=== PATIENT | male | born 1955 | race Caucasian/White ===

== ENCOUNTER 2020-11-04 16:50 | Inpatient (IN) | payer MEDICARE, MEDICAID ==
[~2020-11-04] VITALS: Ht 172.7 cm; Wt 83.5 kg
[2020-11-04] MEDS ORDERED: ONDANSETRON HCL 4MG/2ML INJ IV STA (17:11)
[2020-11-04] MEDS ORDERED: SODIUM CHLORIDE 0.9% 1,000 ML IV ONE (17:15)
[2020-11-04] MEDS: MORPHINE SULFATE 4 MG/ML CPJ (NOT FOR IM USE) IV STA ×2 (17:20→18:48)
[2020-11-04] MEDS ORDERED: KETOROLAC 15MG/ML VIAL IV ONE (17:30)
[2020-11-04 17:45] LABS: BASOPHILS % 0.3 % (0.0-2.0); EOSINOPHILS % 1.7 % (0.0-5.0); HEMOGLOBIN. 14.5 g/dL (14.0-18.0); LYMPHOCYTES % 13.2 % (20.0-50.0); MEAN CORPUSCULAR HEMOGLOBIN 31.1 pg (28.0-32.0); MEAN CORPUSCULAR VOLUME 88.1 fL (80.0-94.0); MEAN PLATELET VOLUME 8.8 fl (7.4-10.4); MONOCYTES % 9.8 % (2.0-8.0); PLATELET 171 x1000/uL (130-400); RED BLOOD CELL COUNT 4.66 mill/uL (4.7-6.1); RED CELL DISTRIBUTION WIDTH 13.5 % (11.6-14.6)
[2020-11-04 17:49] LABS: CHLORIDE 111 mEq/L (98-107)
[2020-11-04 17:54] LABS: ETHANOL BLOOD 141 mg/dL
[2020-11-04] MEDS ORDERED: DOCUSATE SODIUM 100MG CAPSULE PO PRN (20:00)
[2020-11-04] MEDS ORDERED: HYDRALAZINE 20MG/ML VIAL IV PRN (20:00)
[2020-11-04] MEDS ORDERED: ACETAMINOPHEN 325MG TABLET PO PRN (20:00)
[2020-11-04] MEDS ORDERED: GUAIFENESIN 200MG/10ML SUGAR FREE UDC PO PRN (20:00)
[2020-11-04] MEDS ORDERED: ONDANSETRON HCL 4MG/2ML INJ IV PRN (20:00)
[2020-11-04] MEDS ORDERED: DIPHENHYDRAMINE 50MG/ML VIAL IV PRN (20:00)
[2020-11-04] MEDS ORDERED: IPRATROPIUM/ALBUTEROL 0.5-3(2.5)MG/3ML NEB HHN PRN (20:00)
[2020-11-04] MEDS ORDERED: MAGNESIUM/ALUMINUM HYDROXIDE/SIMETHICONE 30ML UDC PO PRN (20:00)
[2020-11-04] MEDS: MORPHINE SULFATE 2 MG/ML CPJ (NOT FOR IM USE) IV PRN (22:44)
[2020-11-04] MEDS ORDERED: IOHEXOL-350 100 ML BOTTLE ONE (23:25)
[2020-11-05] VITALS (9 sets, daily range): BP systolic 137–201; BP diastolic 53–97
[2020-11-05 00:21] LABS: CREATINE KINASE 156 IU/L (39-308)
[2020-11-05 00:22] LABS: CREATINE KINASE MB FRACTION 1.5 ng/mL (0.5-3.6)
[2020-11-05] MEDS ORDERED: DICL75TA5 PO (02:07)
[2020-11-05] MEDS ORDERED: HYDR50TA MT (02:16)
[2020-11-05] MEDS ORDERED: ASPI-1406 PO (02:16)
[2020-11-05] MEDS ORDERED: APIX5TAB PO (02:16)
[2020-11-05] MEDS ORDERED: LISI30TA36 MT (02:16)
[2020-11-05] MEDS ORDERED: ATOR80TA MT (02:16)
[2020-11-05] MEDS: HYDROCODONE/ACETAMINOPHEN 5/325MG TABLET PO PRN ×4 (02:37→21:33)
[2020-11-05] MEDS: ENOXAPARIN 40MG/0.4ML SYR SUBCUT SCH ×2 (03:30→20:56)
[2020-11-05] MEDS: SODIUM CHLORIDE 0.9% INJ 3ML FLUSH IVF SCH ×4 (03:33→20:56)
[2020-11-05] MEDS ORDERED: *PATIENT'S OWN MEDICATION STORAGE XX SCH (06:00)
[2020-11-05] MEDS: MORPHINE SULFATE 2 MG/ML CPJ (NOT FOR IM USE) IV PRN ×2 (06:15→12:15)
[2020-11-05 06:16] LABS: BASOPHILS % 0.3 % (0.0-2.0); EOSINOPHILS % 4.5 % (0.0-5.0); LYMPHOCYTES % 14.6 % (20.0-50.0); MEAN CORPUSCULAR HEMOGLOBIN 30.9 pg (28.0-32.0); MEAN CORPUSCULAR VOLUME 88.6 fL (80.0-94.0); MEAN PLATELET VOLUME 9.1 fl (7.4-10.4); MONOCYTES % 12.1 % (2.0-8.0); NEUTROPHILS % 68.5 % (40.0-76.0); PLATELET 119 x1000/uL (130-400); RED BLOOD CELL COUNT 4.51 mill/uL (4.7-6.1); RED CELL DISTRIBUTION WIDTH 13.6 % (11.6-14.6)
[2020-11-05 06:28] LABS: CHLORIDE 112 mEq/L (98-107)
[2020-11-05 06:44] LABS: CREATINE KINASE 123 IU/L (39-308)
[2020-11-05 06:45] LABS: CREATINE KINASE MB FRACTION 1.5 ng/mL (0.5-3.6)
[2020-11-05] MEDS: ASPIRIN 81MG TABLET PO SCH (10:56)
[2020-11-05] MEDS: LISINOPRIL 10MG TABLET PO SCH (10:56)
[2020-11-05] MEDS: HYDROCHLOROTHIAZIDE 12.5MG CAPSULE PO SCH (10:56)
[2020-11-05] MEDS: CLONIDINE 0.1MG TABLET PO PRN (16:47)
[2020-11-05] MEDS: ATORVASTATIN CALCIUM 20MG TABLET PO SCH (20:57)
[2020-11-06 00:30] VITALS: BP 138/83
[2020-11-06] MEDS: MORPHINE SULFATE 2 MG/ML CPJ (NOT FOR IM USE) IV PRN ×4 (01:41→20:23)
[2020-11-06 04:30] VITALS: BP 172/87
[2020-11-06] MEDS: SODIUM CHLORIDE 0.9% INJ 3ML FLUSH IVF SCH ×3 (06:11→21:04)
[2020-11-06] MEDS: CLONIDINE 0.1MG TABLET PO PRN ×2 (06:11→20:24)
[2020-11-06 06:28] LABS: *BARBITURATES SCREEN URINE NEGATIVE (NEGATIVE); *BENZODIAZEPINES SCREEN URINE NEGATIVE (NEGATIVE); *COCAINE SCREEN URINE NEGATIVE (NEGATIVE); METHADONE URINE SCREEN NEGATIVE (NEGATIVE); OPIATES URINE SCREEN PRESUMTIVE POSITIVE (NEGATIVE)
[2020-11-06 06:29] LABS: *AMPHETAMINES SCREEN URINE NEGATIVE (NEGATIVE); CANNABINOID URINE SCREEN PRESUMTIVE POSITIVE (NEGATIVE); PHENCYCLIDINE URINE SCREEN NEGATIVE (NEGATIVE)
[2020-11-06 07:00] LABS: BASOPHILS % 0.3 % (0.0-2.0); EOSINOPHILS % 4.7 % (0.0-5.0); HEMATOCRIT. 42.7 % (42.0-52.0); HEMOGLOBIN. 14.9 g/dL (14.0-18.0); LYMPHOCYTES % 13.1 % (20.0-50.0); MEAN CORPUSCULAR HEMOGLOBIN 30.7 pg (28.0-32.0); MEAN CORPUSCULAR VOLUME 88.2 fL (80.0-94.0); MEAN PLATELET VOLUME 8.7 fl (7.4-10.4); MONOCYTES % 8.9 % (2.0-8.0); PLATELET 131 x1000/uL (130-400); RED BLOOD CELL COUNT 4.84 mill/uL (4.7-6.1); RED CELL DISTRIBUTION WIDTH 13.4 % (11.6-14.6)
[2020-11-06 07:11] LABS: CHLORIDE 109 mEq/L (98-107)
[2020-11-06] MEDS: ASPIRIN 81MG TABLET PO SCH (08:25)
[2020-11-06] MEDS: HYDROCHLOROTHIAZIDE 12.5MG CAPSULE PO SCH (08:26)
[2020-11-06] MEDS: LISINOPRIL 10MG TABLET PO SCH (08:26)
[2020-11-06 08:27] VITALS: BP 170/76
[2020-11-06 13:42] VITALS: BP 140/72
[2020-11-06] MEDS: HYDROCODONE/ACETAMINOPHEN 5/325MG TABLET PO PRN (17:03)
[2020-11-06] MEDS: ENOXAPARIN 40MG/0.4ML SYR SUBCUT SCH (20:23)
[2020-11-06] MEDS: ATORVASTATIN CALCIUM 20MG TABLET PO SCH (20:24)
[2020-11-06 20:30] VITALS: BP 192/81
[2020-11-07] VITALS (8 sets, daily range): BP systolic 121–173; BP diastolic 71–87
[2020-11-07] MEDS: MORPHINE SULFATE 2 MG/ML CPJ (NOT FOR IM USE) IV PRN ×2 (02:24→10:17)
[2020-11-07] MEDS: SODIUM CHLORIDE 0.9% INJ 3ML FLUSH IVF SCH ×3 (06:07→19:38)
[2020-11-07] MEDS: ASPIRIN 81MG TABLET PO SCH (08:54)
[2020-11-07] MEDS: HYDROCHLOROTHIAZIDE 12.5MG CAPSULE PO SCH (08:55)
[2020-11-07] MEDS: LISINOPRIL 10MG TABLET PO SCH (08:55)
[2020-11-07 09:45] LABS: BASOPHILS % 0.4 % (0.0-2.0); EOSINOPHILS % 4.8 % (0.0-5.0); HEMATOCRIT. 43.6 % (42.0-52.0); HEMOGLOBIN. 15.4 g/dL (14.0-18.0); LYMPHOCYTES % 12.4 % (20.0-50.0); MEAN CORPUSCULAR HEMOGLOBIN 31.1 pg (28.0-32.0); MEAN PLATELET VOLUME 8.5 fl (7.4-10.4); MONOCYTES % 9.7 % (2.0-8.0); NEUTROPHILS % 72.7 % (40.0-76.0); PLATELET 141 x1000/uL (130-400); RED BLOOD CELL COUNT 4.96 mill/uL (4.7-6.1); RED CELL DISTRIBUTION WIDTH 13.3 % (11.6-14.6)
[2020-11-07 09:47] LABS: CHLORIDE 107 mEq/L (98-107)
[2020-11-07] MEDS: ENOXAPARIN 40MG/0.4ML SYR SUBCUT SCH (19:37)
[2020-11-07] MEDS: ATORVASTATIN CALCIUM 20MG TABLET PO SCH (19:37)
[2020-11-07] MEDS: HYDROCODONE/ACETAMINOPHEN 5/325MG TABLET PO PRN (19:37)
[2020-11-08] VITALS: BP 183/100
[2020-11-08] MEDS: CLONIDINE 0.1MG TABLET PO PRN ×2 (00:12→09:04)
[2020-11-08] MEDS: LORAZEPAM 2MG/ML CPJ IV PRN ×3 (00:12→21:07)
[2020-11-08 04:18] VITALS: BP 134/78
[2020-11-08] MEDS: SODIUM CHLORIDE 0.9% INJ 3ML FLUSH IVF SCH ×3 (05:19→21:07)
[2020-11-08 08:00] VITALS: BP 170/92
[2020-11-08] MEDS: ASPIRIN 81MG TABLET PO SCH (08:58)
[2020-11-08] MEDS: HYDROCHLOROTHIAZIDE 12.5MG CAPSULE PO SCH (08:58)
[2020-11-08] MEDS: LISINOPRIL 10MG TABLET PO SCH (08:59)
[2020-11-08 12:00] VITALS: BP 118/68
[2020-11-08 16:00] VITALS: BP 124/86
[2020-11-08 20:32] VITALS: BP 109/80
[2020-11-08] MEDS: ATORVASTATIN CALCIUM 20MG TABLET PO SCH (21:06)
[2020-11-08] MEDS: ENOXAPARIN 40MG/0.4ML SYR SUBCUT SCH (21:07)
[2020-11-09 00:37] VITALS: BP 112/72
[2020-11-09 04:00] VITALS: BP 163/89
[2020-11-09] MEDS: CLONIDINE 0.1MG TABLET PO PRN (06:11)
[2020-11-09] MEDS: SODIUM CHLORIDE 0.9% INJ 3ML FLUSH IVF SCH ×2 (06:12→13:39)
[2020-11-09 08:05] VITALS: BP 164/102
[2020-11-09] MEDS: HYDROCHLOROTHIAZIDE 12.5MG CAPSULE PO SCH (08:44)
[2020-11-09] MEDS: LISINOPRIL 10MG TABLET PO SCH (08:45)
[2020-11-09] MEDS: ASPIRIN 81MG TABLET PO SCH (08:45)
[2020-11-09] MEDS: LORAZEPAM 2MG/ML CPJ IV PRN ×2 (08:58→13:39)
[2020-11-09 11:38] VITALS: BP 110/72
[2020-11-09 11:42] VITALS: BP 110/72
== END 2020-11-09 15:10 | disposition short-term general hospital (02) | DRG 205 ==
LOC: ER 17:29 → EDBEDREQ 19:05 → EDBEDREQTM 19:05 → EDBEDREQ 19:06 → EDBEDREQTM 19:06 → 6WST 19:55 → EDBEDREQTM 19:59 → EDBEDREQ 19:59 → ENRESERV 20:51
PROVIDERS: ADMIT Internal Medicine; ATTEND Internal Medicine
DX: M94.0 Chondrocostal junction syndrome [Tietze] (principal); N17.0 Acute kidney failure with tubular necrosis; S29.9XXA Unspecified injury of thorax, initial encounter; F10.129 Alcohol abuse with intoxication, unspecified; G89.29 Other chronic pain; E87.6 Hypokalemia; I10 Essential (primary) hypertension; Y90.6 Blood alcohol level of 120-199 mg/100 ml; F17.210 Nicotine dependence, cigarettes, uncomplicated; I25.10 Atherosclerotic heart disease of native coronary artery without angina pectoris; E78.5 Hyperlipidemia, unspecified; I71.4 Abdominal aortic aneurysm, without rupture; M51.26 Other intervertebral disc displacement, lumbar region; F12.90 Cannabis use, unspecified, uncomplicated; K57.90 Diverticulosis of intestine, part unspecified, without perforation or abscess without bleeding; M54.9 Dorsalgia, unspecified; Z20.822 Contact with and (suspected) exposure to COVID-19; M47.816 Spondylosis without myelopathy or radiculopathy, lumbar region; X58.XXXA Exposure to other specified factors, initial encounter; I25.2 Old myocardial infarction; Z95.1 Presence of aortocoronary bypass graft; Y93.89 Activity, other specified; Y92.89 Other specified places as the place of occurrence of the external cause; Y99.8 Other external cause status; Z79.01 Long term (current) use of anticoagulants; Z79.899 Other long term (current) drug therapy
CPT/HCPCS: 36415; 71045; 71275; 72148; 74174; 74176; 80048; 80053; 80061; 80305; 80320; 82550; 82553; 83735; 83880; 84443; 84484; 85025; 87426; 93005; 93306; 93970; 97162; 99291; C1893; J0360; J1650; J1885; J2060; J2270; J2405; J7030; Q9967; G0480